=== PATIENT | male | born 1965 | race Asian ===

== ENCOUNTER 2016-07-26 15:49 | Emergency (ER) | payer BC ==
[2016-07-26 16:09] VITALS: BP 119/79; PULSE 92; RESP 16; TEMP 98.1; O2SAT 92
--- NOTE | 2016-07-26 18:13 | UCPHY ---
H & P Time Seen by Provider: 07/26/16 16:22 Patient Type: Established HPI/ROS: This patient complains of left calf pain. He reports the pain is mild-4/10 worsens with walking or running. He thinks he may have strained his calf all running however 2 days prior to the episode of calf pain he was on a plane for several hours traveling. He reports no other exacerbating factors for his calf pain which is currently mild in intensity with associated tenderness. ROS: No fevers or chills. No other constitutional symptoms. HEENT: No complaints cardiovascular: No heart palpitations chest pain or lightheadedness. Pulmonary: No pleuritic pain or shortness of breath. Integumentary: No skin rashes associated with this. ROS is otherwiseNegative. Past Medical/Surgical History: Physical Exam Vital signs are normal. General: No acute distress Lungs: No respiratory distress. Cardiac: Brisk capillary refill is intact throughout. Pulses are 2+ and symmetric in the affected extremity. Skin: No rash or pallor. Extremities: Atraumatic and normal except for left calf : Left calf: Moderate posterior calf tenderness. Homans is negative. No associated knee swelling or tenderness. Neuro: Alert and oriented with no sensorimotor deficits in the affected extremity Initial differential diagnosis: Calf strain, DVT, Smoking Status: Never smoked Constitutional: Initial Vital Signs Temperature (C) 36.7 C 07/26/16 16:05 Heart Rate 92 07/26/16 16:05 Respiratory Rate 16 07/26/16 16:05 Blood Pressure 119/79 07/26/16 16:05 O2 Sat (%) 92 07/26/16 16:05 O2 Delivery Mode Room Air Allergies/Adverse Reactions: No Known Allergies Allergy (Verified 07/26/16 16:04) Home Medications: Medication Instructions Recorded buPROPion [Wellbutrin (RX)] 150 mg PO 12/23/11 Simvastatin [Zocor 40 mg (RX)] 40 mg PO DAILY18 03/03/12 Claritin 03/12/15 Budesonide 10/11/15 Symbicort 160-4.5 Mcg Inh (RX) 10/11/15 MDM/Departure - MDM Imaging Results: Doppler ultrasound of lower extremities negative for DVT Imaging: Discussed imaging studies w/ thread cutter tender Radiologist ED Course/Re-evaluation: I counseled the patient regarding muscle strain and counseled regarding his negative Doppler - Depart Disposition: Home, Routine, Self-Care Clinical Impression: Strain of calf muscle Qualifiers: Encounter type: initial encounter Laterality: left Qualified Code(s): S86.812A - Strain of other muscle(s) and tendon(s) at lower leg level, left leg, initial encounter Condition: Good Instructions: Muscle Strain (ED) Additional Instructions: Diagnosis: Calf muscle strain Your ultrasound is negative for deep venous thrombosis Plan: Ibuprofen and Tylenol for discomfort Daily stretching twice a day more Gradual return to activity as discussed. Return for any significant worsening despite the treatment plan. Referrals: Mac Rodrigues MD [Primary Care Provider] - As per Instructions - PQRS PQRS Measurement: NA
== END 2016-07-26 18:26 | disposition home or self-care (01) ==
LOC: CED 15:49
DX: S86.812A Strain of other muscle(s) and tendon(s) at lower leg level, left leg, initial encounter (principal); X50.0XXA Overexertion from strenuous movement or load, initial encounter; Y93.02 Activity, running; Y92.520 Airport as the place of occurrence of the external cause; Y99.8 Other external cause status
CPT/HCPCS: 93971-PO; 99214-PO; G0463-PO

== ENCOUNTER → 2017-06-11 | Outpatient (CLI) | payer BC ==
[~2017-06-11] MED LIST: IOPAMIDOL (ISOVUE-300) 100 ML BTL ONE
== END ==
LOC: FIMAGING 10:40
PROVIDERS: ATTEND Emergency Medicine
DX: R10.31 Right lower quadrant pain (principal); K59.00 Constipation, unspecified
CPT/HCPCS: Q9967